=== PATIENT | male | born 1955 | race African-American/Black ===

== ENCOUNTER 2020-03-26 12:20 | Emergency (ER) | payer OTHER ==
[2020-03-26 12:35] VITALS: BMI 33.8
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
[2020-03-26] MEDS ORDERED: ACETAMINOPHEN 500 MG TABLET (FP) PO ONE (13:28)
[2020-03-26] MEDS ORDERED: ACETAMINOPHEN 325 MG TABLET (FP) ONE (13:39)
[2020-03-26] MEDS ORDERED: DIPHTH,PERTUSS(ACELL),TET 0.5 ML DISP.SYRIN IM ONE ×2 (13:51→14:00)
[2020-03-26 16:19] VITALS: BP 138/80; PULSE 72; TEMP 98.1
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
== END 2020-03-26 16:20 | disposition home or self-care (01) ==
LOC: JER 12:20
PROC: 0CQ03ZZ Repair Upper Lip, Percutaneous Approach (ICD-10-PCS; principal; 2020-03-26)
PROC: 3E0234Z Introduction of Serum, Toxoid and Vaccine into Muscle, Percutaneous Approach (ICD-10-PCS; 2020-03-26)
DX: S01.511A Laceration without foreign body of lip, initial encounter (principal)
CPT/HCPCS: 70450-TC; 72125-TC; 90715; 99285-25

== ENCOUNTER 2024-01-24 04:40 | Emergency (ER) | payer OTHER ==
[2024-01-24 04:50] VITALS: TEMP 97.7; BMI 35.5
[2024-01-24] MEDS ORDERED: ACETAMINOPHEN INJECTION 100 ML IVPB ONE (05:10)
[2024-01-24] MEDS ORDERED: ONDANSETRON 4 MG/2 ML VIAL ONE (05:10)
[2024-01-24] MEDS: ONDANSETRON 4 MG/2 ML VIAL IVPUSH ONE (05:29)
[2024-01-24] MEDS: ACETAMINOPHEN 1000 MG/100 ML BAG IVPB ONE (05:29)
[2024-01-24 05:56] LABS: BASO % 0.2 % (0-2.0); EOS % 0.3 % (0-4.5); HEMATOCRIT 42.9 % (35.4-49); MCH 27.7 pg (25.7-33.7); MCHC 32.7 g/dl (32.0-35.9); MEAN CELL VOLUME 84.6 fl (80-96); MEAN PLT VOLUME 9.4 fl (7.5-11.1); MONO % 4.9 % (3.8-10.2); NEUT % 70.6 % (42.8-82.8); PLATELET COUNT 216 10^3/uL (134-434); RBC 5.07 M/mm3 (4.00-5.60); RDW 14.8 % (11.9-15.9); WHITE BLOOD COUNT 5.6 K/mm3 (4.0-10.0)
[2024-01-24 06:12] LABS: VENOUS BASE EXCESS -2.5 mmol/L (-2-2); VENOUS O2 SATURATION 79.5 % (70-80); VENOUS PCO2 36.2 mmHg (38-52); VENOUS PH 7.395 (7.310-7.410)
[2024-01-24 06:15] LABS: INR 1.02 (0.83-1.09); PROTHROMBIN TIME (PATIENT) 11.7 SEC (9.7-13.0)
[2024-01-24 06:17] LABS: ACTIVATED PTT 30.8 SECONDS (25.2-36.5)
[2024-01-24 06:41] LABS: ALBUMIN 3.6 g/dl (3.4-5.0); CALCIUM 9.4 mg/dL (8.5-10.1)
[2024-01-24 06:42] LABS: MAGNESIUM 1.8 mg/dL (1.8-2.4)
[2024-01-24 06:44] LABS: CREATININE 1.2 mg/dL (0.55-1.3); PHOSPHOROUS 2.5 mg/dL (2.5-4.9)
[2024-01-24 06:46] LABS: BILIRUBIN,TOTAL 0.7 mg/dL (0.2-1); TOT PROT 7.3 g/dl (6.4-8.2)
[2024-01-24] MEDS: LACTATED RINGERS SOLUTION 1000 ML INFUS.BAG IV ONE (06:52)
[2024-01-24 10:26] VITALS: BP 171/78; PULSE 53; RESP 18
== END 2024-01-24 10:26 | disposition home or self-care (01) ==
LOC: JER 04:40
PROC: 3E033GC Introduction of Other Therapeutic Substance into Peripheral Vein, Percutaneous Approach (ICD-10-PCS; principal; 2024-01-24)
PROC: 3E033NZ Introduction of Analgesics, Hypnotics, Sedatives into Peripheral Vein, Percutaneous Approach (ICD-10-PCS; 2024-01-24)
DX: R10.32 Left lower quadrant pain (principal); R11.2 Nausea with vomiting, unspecified; R06.02 Shortness of breath; R07.2 Precordial pain; K57.32 Diverticulitis of large intestine without perforation or abscess without bleeding
CPT/HCPCS: 36415; 71045-TC-FY; 74177-TC; 80053; 82803; 83690; 83735; 84100; 84484; 85025; 85610; 85730; 93005; 93010; 99285-25; J0131

== ENCOUNTER 2024-01-25 18:10 | Inpatient (IN) | payer OTHER ==
[2024-01-25 19:43] LABS: BASO % 0.1 % (0-2.0); HEMATOCRIT 48.2 % (35.4-49); LYMPH % 12.2 % (8-40); MCHC 33.1 g/dl (32.0-35.9); MEAN CELL VOLUME 84.5 fl (80-96); MEAN PLT VOLUME 9.8 fl (7.5-11.1); MONO % 2.1 % (3.8-10.2); NEUT % 85.6 % (42.8-82.8); PLATELET COUNT 186 10^3/uL (134-434); RBC 5.71 M/mm3 (4.00-5.60); RDW 15.7 % (11.9-15.9); WHITE BLOOD COUNT 7.3 K/mm3 (4.0-10.0)
[2024-01-25] MEDS ORDERED: PIPERACILLIN/TAZOB 3.375 GM 3.375 GM/50 ML BAG IVPB ONE (19:46)
[2024-01-25 19:48] LABS: VENOUS BASE EXCESS -0.7 mmol/L (-2-2); VENOUS O2 SATURATION 80.1 % (70-80); VENOUS PCO2 35.9 mmHg (38-52); VENOUS PH 7.427 (7.310-7.410)
[2024-01-25] MEDS: ACETAMINOPHEN 1000 MG/100 ML BAG IVPB ONE (20:00)
[2024-01-25] MEDS: SODIUM CHLORIDE 1,000 ML IV STA (20:00)
[2024-01-25] MEDS: PIPERACILLIN/TAZOB 3.375 GM 3.375 GM in DEXTROSE 5%-WATER - 50 ML IVPB ONE (20:01)
[2024-01-25 20:08] LABS: POTASSIUM 4.7 mmol/L (3.5-5.1)
[2024-01-25 20:10] LABS: CALCIUM 9.5 mg/dL (8.5-10.1)
[2024-01-25 20:11] LABS: BLOOD UREA NITROGEN 12.6 mg/dL (7-18)
[2024-01-25 20:12] LABS: ALBUMIN 3.6 g/dl (3.4-5.0)
[2024-01-25 20:14] LABS: CREATININE 1.5 mg/dL (0.55-1.3)
[2024-01-25 20:16] LABS: BILIRUBIN,TOTAL 2.6 mg/dL (0.2-1); TOT PROT 8.3 g/dl (6.4-8.2)
[2024-01-25 20:25] LABS: LACTIC ACID 5.7 mmol/L (0.4-2.0)
[2024-01-25 21:13] LABS: INR 1.62 (0.83-1.09); PROTHROMBIN TIME (PATIENT) 18.1 SEC (9.7-13.0)
[2024-01-25] MEDS: VANCOMYCIN PREMIX 1.75 GM 1,750 MG/350 ML PIGGYBACK IVPB ONE (22:01)
[2024-01-26 00:52] LABS: EPI CELLS 5 /uL (0-25.1); HYALINE CASTS 0 /uL (0-3.1); URINE APPEARANCE CLEAR; URINE BACTERIA 9 /uL (0-1359); URINE BILIRUBIN NEGATIVE (NEGATIVE); URINE COLOR YELLOW; URINE GLUCOSE (UA) 1+ (NEGATIVE); URINE KETONE NEGATIVE (NEGATIVE); URINE LEUK ESTERASE 2+ (NEGATIVE); URINE NITRITE NEGATIVE (NEGATIVE); URINE PROTEIN TRACE (NEGATIVE); URINE RBC 9 /uL (0-23.9); URINE UROBILINOGEN 0.2 mg/dL (0.2-1.0); URINE WBC 72 /uL (0-25.8)
[2024-01-26] MEDS ORDERED: ACETAMINOPHEN 325 MG TABLET (FP) PO PRN (02:17)
[2024-01-26] MEDS ORDERED: PIPERACILLIN/TAZOB 2.25 GM 2.25 GM/50 ML BAG IVPB ONE ×3 (02:38→13:33)
[2024-01-26] MEDS ORDERED: PIPERACILLIN/TAZOB 2.25 GM 2.25 GM in DEXTROSE 5%-WATER - 50 ML IVPB SCH (03:00)
[2024-01-26] MEDS: PIPERACILLIN/TAZOB 2.25 GM 2.25 GM in DEXTROSE 5%-WATER - 50 ML IVPB SCH (03:27)
[2024-01-26] MEDS: ACETAMINOPHEN 325 MG TABLET (FP) PO PRN (03:28)
[2024-01-26 06:37] LABS: HEMATOCRIT 41.8 % (35.4-49); HEMOGLOBIN 13.5 GM/dL (11.7-16.9); MCH 27.3 pg (25.7-33.7); MCHC 32.3 g/dl (32.0-35.9); MEAN CELL VOLUME 84.5 fl (80-96); PLATELET COUNT 135 10^3/uL (134-434); RBC 4.95 M/mm3 (4.00-5.60); WHITE BLOOD COUNT 17.1 K/mm3 (4.0-10.0)
[2024-01-26 06:47] LABS: POTASSIUM 3.5 mmol/L (3.5-5.1)
[2024-01-26 06:50] LABS: BLOOD UREA NITROGEN 16.6 mg/dL (7-18); CALCIUM 8.4 mg/dL (8.5-10.1); MAGNESIUM 1.5 mg/dL (1.8-2.4)
[2024-01-26 06:53] LABS: CREATININE 1.3 mg/dL (0.55-1.3); PHOSPHOROUS 2.5 mg/dL (2.5-4.9)
[2024-01-26 06:55] LABS: BILIRUBIN,TOTAL 1.8 mg/dL (0.2-1); TOT PROT 6.4 g/dl (6.4-8.2)
[2024-01-26 06:58] LABS: N-TERMINAL BNP 2160.8 pg/ml (5-125)
[2024-01-26 07:17] LABS: ALBUMIN 2.8 g/dl (3.4-5.0)
[2024-01-26] MEDS ORDERED: MAGNESIUM SULFATE IN WATER 2 GM/50 ML IVPB IVPB ONE (08:04)
[2024-01-26] MEDS: MAGNESIUM SULF 50% (8.12 MEQ/2 ML-1 GM VIAL) IVPB ONE (08:14)
[2024-01-26 08:41] LABS: ANISOCYTOSIS 0; HELMET CELLS 0; HOWELL-JOLLY BODIES 0; MACROCYTOSIS 0; OVALOCYTE 0; ROULEAU 0; SICKELED CELLS 0; TARGET CELLS 0; TEAR DROP CELLS 0; TOXIC GRANULATION 0
[2024-01-26] MEDS ORDERED: metFORMIN HCL 500 MG TABLET (FP) ONE (09:26)
[2024-01-26] MEDS ORDERED: PANTOPRAZOLE SODIUM 40 MG VIAL ONE (09:27)
[2024-01-26] MEDS ORDERED: ENOXAPARIN NA (PORCINE) 40 MG/0.4 ML DISP.SYRIN SQ ONE (09:27)
[2024-01-26] MEDS: PANTOPRAZOLE SODIUM 40 MG VIAL IVPUSH SCH (09:46)
[2024-01-26] MEDS: ENOXAPARIN NA (PORCINE) 40 MG/0.4 ML DISP.SYRIN SQ SCH (09:46)
[2024-01-26] MEDS: metFORMIN HCL 500 MG TABLET (FP) PO SCH (09:46)
[2024-01-26] MEDS: FINASTERIDE 5 MG TABLET (FP) PO SCH (10:35)
[2024-01-26] MEDS ORDERED: MORPHINE SULFATE 2 MG/ML SYRINGE ONE (14:02)
[2024-01-26] MEDS: MORPHINE SULFATE 2 MG/ML SYRINGE IM PRN (14:08)
[2024-01-26] MEDS: SODIUM CHLORIDE 1,000 ML IV SCH (14:09)
[2024-01-26 17:51] VITALS: BMI 42.7
[2024-01-26] MEDS: INSULIN ASPART SLIDING SCALE (NOVOLOG) 1 VIAL SQ SCH (19:23)
[2024-01-26] MEDS: PIPERACILLIN/TAZOB 3.375 GM 3.375 GM in DEXTROSE 5%-WATER - 50 ML IVPB SCH (19:23)
[2024-01-26] MEDS: ACETAMINOPHEN 1000 MG/100 ML BAG IVPB PRN (20:20)
[2024-01-27 08:43] LABS: HEMATOCRIT 38.9 % (35.4-49); HEMOGLOBIN 12.7 GM/dL (11.7-16.9); MCH 27.3 pg (25.7-33.7); MCHC 32.5 g/dl (32.0-35.9); MEAN CELL VOLUME 83.9 fl (80-96); MEAN PLT VOLUME 9.8 fl (7.5-11.1); PLATELET COUNT 90 10^3/uL (134-434); RBC 4.64 M/mm3 (4.00-5.60); RDW 15.4 % (11.9-15.9); WHITE BLOOD COUNT 23.1 K/mm3 (4.0-10.0)
[2024-01-27 09:04] LABS: POTASSIUM 3.4 mmol/L (3.5-5.1)
[2024-01-27 09:06] LABS: ALBUMIN 2.3 g/dl (3.4-5.0); CALCIUM 8.1 mg/dL (8.5-10.1)
[2024-01-27 09:07] LABS: BLOOD UREA NITROGEN 22.2 mg/dL (7-18)
[2024-01-27 09:09] LABS: MAGNESIUM 2.3 mg/dL (1.8-2.4); PHOSPHOROUS 2.6 mg/dL (2.5-4.9)
[2024-01-27 09:10] LABS: CREATININE 1.2 mg/dL (0.55-1.3)
[2024-01-27 09:11] LABS: BILIRUBIN,TOTAL 1.4 mg/dL (0.2-1); TOT PROT 5.7 g/dl (6.4-8.2)
[2024-01-28] MEDS: ACETAMINOPHEN 325 MG TABLET (FP) PO PRN (10:05)
[2024-01-28 10:17] LABS: HEMATOCRIT 38.1 % (35.4-49); HEMOGLOBIN 12.5 GM/dL (11.7-16.9); MCH 27.4 pg (25.7-33.7); MCHC 32.9 g/dl (32.0-35.9); MEAN CELL VOLUME 83.3 fl (80-96); MEAN PLT VOLUME 10.6 fl (7.5-11.1); RBC 4.57 M/mm3 (4.00-5.60); RDW 15.3 % (11.9-15.9); WHITE BLOOD COUNT 14.3 K/mm3 (4.0-10.0)
[2024-01-28 10:19] LABS: CHLORIDE 107 mmol/L (98-107); SODIUM 139 mmol/L (136-145)
[2024-01-28 10:21] LABS: CALCIUM 7.7 mg/dL (8.5-10.1)
[2024-01-28 10:22] LABS: ALBUMIN 2.1 g/dl (3.4-5.0); BLOOD UREA NITROGEN 20.8 mg/dL (7-18); CO2 25 mmol/L (21-32); GLUCOSE,RANDOM 119 mg/dL (74-106); MAGNESIUM 2.4 mg/dL (1.8-2.4)
[2024-01-28 10:25] LABS: ANION GAP 7 mmol/L (4-13); CREATININE 0.9 mg/dL (0.55-1.3); POTASSIUM 2.9 mmol/L (3.5-5.1); SGOT/AST 28 U/L (15-37); SGPT/ALT 31 U/L (13-61)
[2024-01-28 10:26] LABS: BILIRUBIN,TOTAL 1.2 mg/dL (0.2-1)
[2024-01-28 10:27] LABS: TOT PROT 5.4 g/dl (6.4-8.2)
[2024-01-28 10:28] LABS: ALK PHOS 94 U/L (45-117)
[2024-01-28 10:29] LABS: PHOSPHOROUS 1.1 mg/dL (2.5-4.9)
[2024-01-28 11:34] LABS: PLATELET COUNT 58 10^3/uL (134-434)
[2024-01-28 12:03] LABS: BILIRUBIN,DIRECT 0.5 mg/dL (0.0-0.2)
[2024-01-28] MEDS: POTASSIUM CHLORIDE TABS 20 MEQ TABLET.ER (FP) PO ONE (12:26)
[2024-01-28] MEDS: NAPH,MB-DB/K PH,MBDB POWDER PACKET PO SCH (12:26)
[2024-01-29] MEDS ORDERED: ACETAMINOPHEN 1000 MG/100 ML BAG IVPB ONE ×2 (07:06→15:11)
[2024-01-29] MEDS: ACETAMINOPHEN 1000 MG/100 ML BAG IVPB ONE ×2 (07:08→18:20)
[2024-01-29] MEDS: SODIUM CHLORIDE 1,000 ML IV STA ×2 (07:39→09:40)
[2024-01-29] MEDS: KETOROLAC TROMETHAMINE 15 MG/ML VIAL IVPUSH ONE (07:54)
[2024-01-29 09:48] LABS: BASO % 0.2 % (0-2.0); HEMATOCRIT 40.1 % (35.4-49); LYMPH % 2.7 % (8-40); MCH 27.2 pg (25.7-33.7); MCHC 32.5 g/dl (32.0-35.9); MEAN CELL VOLUME 83.7 fl (80-96); MEAN PLT VOLUME 10.6 fl (7.5-11.1); MONO % 9.4 % (3.8-10.2); NEUT % 86.7 % (42.8-82.8); PLATELET COUNT 57 10^3/uL (134-434); RBC 4.79 M/mm3 (4.00-5.60)
[2024-01-29 09:52] LABS: INR 1.13 (0.83-1.09); PROTHROMBIN TIME (PATIENT) 12.7 SEC (9.7-13.0)
[2024-01-29 09:54] LABS: ACTIVATED PTT 29.7 SECONDS (25.2-36.5)
[2024-01-29 09:59] LABS: POTASSIUM 3.2 mmol/L (3.5-5.1)
[2024-01-29 10:04] LABS: ALBUMIN 2.2 g/dl (3.4-5.0); BLOOD UREA NITROGEN 20.1 mg/dL (7-18)
[2024-01-29 10:09] LABS: BILIRUBIN,TOTAL 1.5 mg/dL (0.2-1); TOT PROT 5.7 g/dl (6.4-8.2)
[2024-01-29 10:38] LABS: ALBUMIN 2.2 g/dl (3.4-5.0); BLOOD UREA NITROGEN 19.6 mg/dL (7-18); CALCIUM 7.9 mg/dL (8.5-10.1)
[2024-01-29 10:39] LABS: MAGNESIUM 2.3 mg/dL (1.8-2.4)
[2024-01-29 10:42] LABS: PHOSPHOROUS 1.4 mg/dL (2.5-4.9)
[2024-01-29 10:43] LABS: BILIRUBIN,TOTAL 1.5 mg/dL (0.2-1); TOT PROT 5.7 g/dl (6.4-8.2)
[2024-01-29] MEDS: KCL 10 MEQ IVPB 10 MEQ/100 ML INFUS.BAG IVPB SCH (11:35)
[2024-01-29] MEDS ORDERED: BUPIVACAINE HCL/PF 0.25% (2.5MG/ML) 10 ML VIAL ONE (13:29)
[2024-01-29] MEDS ORDERED: HEPARIN NA (PORCINE) 5,000 UNITS/ML 1ML VIAL ONE (13:51)
[2024-01-29] MEDS: POTASSIUM PHOSPHATE 15 MM in DEXTROSE 5%-WATER - 250 ML IVPB ONE (13:51)
[2024-01-29] MEDS ORDERED: LIDOCAINE HCL/PF 2% SDV 5ML VIAL ONE (13:57)
[2024-01-29] MEDS ORDERED: PROPOFOL 20 ML ONE (13:57)
[2024-01-29] MEDS ORDERED: MIDAZOLAM HCL 2 MG/2 ML SINGLE DOSE VIAL ONE (13:58)
[2024-01-29] MEDS ORDERED: SUCCINYLCHOLINE CHLORIDE 200 MG/10 ML SYRINGE ONE (13:58)
[2024-01-29] MEDS ORDERED: ROCURONIUM BROMIDE 50 MG/5 ML SYRINGE ONE ×2 (13:58→15:56)
[2024-01-29] MEDS ORDERED: DEXAMETHASONE SOD PHOSPHATE 4 MG/1 ML VIAL ONE (14:29)
[2024-01-29] MEDS: BUPIVACAINE HCL/PF 0.25% (2.5MG/ML) 10 ML VIAL IJ ONE (14:42)
[2024-01-29] MEDS: cefOXitin SODIUM 1 GM VIAL (RESTRICTED TO ID) IVPB ONE (14:55)
[2024-01-29] MEDS ORDERED: ONDANSETRON 4 MG/2 ML VIAL IVPUSH PRN ×2 (15:10→17:21)
[2024-01-29] MEDS ORDERED: PROMETHAZINE HCL 25 MG/1 ML VIAL IVPB PRN ×2 (15:10→17:21)
[2024-01-29] MEDS ORDERED: LACTATED RINGERS SOLUTION 1,000 ML IV SCH ×2 (15:15→17:21)
[2024-01-29] MEDS ORDERED: KETOROLAC TROMETHAMINE 30 MG/1 ML VIAL ONE (16:45)
[2024-01-29] MEDS ORDERED: ONDANSETRON 4 MG/2 ML VIAL ONE (16:45)
[2024-01-29] MEDS ORDERED: GLYCOPYRROLATE 0.2 MG/1 ML VIAL ONE (16:46)
[2024-01-29] MEDS ORDERED: NEOSTIGMINE METHYLSULFATE 0.5 MG/1 ML - 10 ML MDV ONE (16:46)
[2024-01-29] MEDS: PIPERACILLIN/TAZOB 3.375 GM 3.375 GM in DEXTROSE 5%-WATER - 50 ML IVPB SCH (18:14)
[2024-01-29] MEDS: ACETAMINOPHEN INJECTION 100 ML IVPB ONE (18:20)
[2024-01-29 18:40] LABS: CALCIUM 7.7 mg/dL (8.5-10.1)
[2024-01-29 18:41] LABS: BLOOD UREA NITROGEN 20.9 mg/dL (7-18)
[2024-01-29 18:44] LABS: CREATININE 1.1 mg/dL (0.55-1.3)
[2024-01-29 19:34] LABS: PHOSPHOROUS 4.3 mg/dL (2.5-4.9)
[2024-01-29] MEDS: SODIUM CHLORIDE 1,000 ML IV SCH (19:35)
[2024-01-29] MEDS: ACETAMINOPHEN 325 MG TABLET (FP) PO SCH (21:01)
[2024-01-30] MEDS: oxyCODONE HCL 5 MG TABLET PO PRN ×2 (01:37→09:47)
[2024-01-30] MEDS: INSULIN ASPART SLIDING SCALE (NOVOLOG) 1 VIAL SQ SCH (06:30)
[2024-01-30 09:22] LABS: BASO % 0.1 % (0-2.0); EOS % 0.1 % (0-4.5); HEMOGLOBIN 11.8 GM/dL (11.7-16.9); MCH 27.1 pg (25.7-33.7); MCHC 32.9 g/dl (32.0-35.9); MEAN CELL VOLUME 82.4 fl (80-96); MONO % 9.6 % (3.8-10.2); NEUT % 83.2 % (42.8-82.8); PLATELET COUNT 78 10^3/uL (134-434); RBC 4.37 M/mm3 (4.00-5.60); RDW 15.9 % (11.9-15.9); WHITE BLOOD COUNT 13.2 K/mm3 (4.0-10.0)
[2024-01-30 09:35] LABS: POTASSIUM 3.4 mmol/L (3.5-5.1)
[2024-01-30 09:47] LABS: BLOOD UREA NITROGEN 19.7 mg/dL (7-18); CALCIUM 7.5 mg/dL (8.5-10.1)
[2024-01-30] MEDS: FINASTERIDE 5 MG TABLET (FP) PO SCH (09:47)
[2024-01-30 09:50] LABS: MAGNESIUM 2.8 mg/dL (1.8-2.4); PHOSPHOROUS 1.8 mg/dL (2.5-4.9)
[2024-01-30 09:51] LABS: BILIRUBIN,TOTAL 0.8 mg/dL (0.2-1)
[2024-01-30 09:54] LABS: TOT PROT 5.5 g/dl (6.4-8.2)
[2024-01-30] MEDS: POTASSIUM CHLORIDE TABS 20 MEQ TABLET.ER (FP) PO ONE (15:09)
[2024-01-30] MEDS: SODIUM CHLORIDE 1,000 ML IV SCH (18:51)
[2024-01-30] MEDS: NAPH,MB-DB/K PH,MBDB POWDER PACKET PO SCH (21:47)
[2024-01-31 09:48] LABS: HEMATOCRIT 36.9 % (35.4-49); HEMOGLOBIN 11.9 GM/dL (11.7-16.9); MCH 27.4 pg (25.7-33.7); MCHC 32.4 g/dl (32.0-35.9); MEAN CELL VOLUME 84.6 fl (80-96); MEAN PLT VOLUME 10.5 fl (7.5-11.1); PLATELET COUNT 97 10^3/uL (134-434); RBC 4.35 M/mm3 (4.00-5.60); RDW 15.6 % (11.9-15.9)
[2024-01-31 10:42] LABS: POTASSIUM 4.2 mmol/L (3.5-5.1)
[2024-01-31 10:58] LABS: CALCIUM 7.5 mg/dL (8.5-10.1)
[2024-01-31 10:59] LABS: ALBUMIN 1.9 g/dl (3.4-5.0); BLOOD UREA NITROGEN 16.1 mg/dL (7-18); MAGNESIUM 2.4 mg/dL (1.8-2.4)
[2024-01-31 11:00] LABS: BILIRUBIN,TOTAL 0.9 mg/dL (0.2-1); TOT PROT 5.5 g/dl (6.4-8.2)
[2024-01-31 11:02] LABS: PHOSPHOROUS 1.5 mg/dL (2.5-4.9)
[2024-02-01 10:10] LABS: HEMATOCRIT 36.5 % (35.4-49); HEMOGLOBIN 11.9 GM/dL (11.7-16.9); MCH 27.3 pg (25.7-33.7); MCHC 32.6 g/dl (32.0-35.9); MEAN CELL VOLUME 83.6 fl (80-96); MEAN PLT VOLUME 10.4 fl (7.5-11.1); PLATELET COUNT 168 10^3/uL (134-434); RBC 4.36 M/mm3 (4.00-5.60); RDW 15.8 % (11.9-15.9); WHITE BLOOD COUNT 15.5 K/mm3 (4.0-10.0)
[2024-02-01 10:32] LABS: POTASSIUM 3.6 mmol/L (3.5-5.1)
[2024-02-01 10:34] LABS: BLOOD UREA NITROGEN 11.6 mg/dL (7-18); CALCIUM 7.9 mg/dL (8.5-10.1); MAGNESIUM 2.2 mg/dL (1.8-2.4)
[2024-02-01 10:36] LABS: CREATININE 0.8 mg/dL (0.55-1.3)
[2024-02-01 10:38] LABS: BILIRUBIN,TOTAL 1.1 mg/dL (0.2-1); PHOSPHOROUS 2.3 mg/dL (2.5-4.9); TOT PROT 5.6 g/dl (6.4-8.2)
[2024-02-01] MEDS: POLYETHYLENE GLYCOL (HEALTHYLAX) 3350 17 GM PACKET PO SCH (12:35)
[2024-02-01 16:01] LABS: BILIRUBIN,DIRECT 0.3 mg/dL (0.0-0.2)
[2024-02-01 16:03] LABS: BILIRUBIN,TOTAL 0.8 mg/dL (0.2-1)
[2024-02-01] MEDS ORDERED: POTASSIUM PHOSPHATE 15 MM in DEXTROSE 5%-WATER - 250 ML IVPB ONE (18:01)
[2024-02-01] MEDS: BISACODYL 10 MG SUPP.RECT PR ONE (18:31)
[2024-02-02] MEDS: NAPH,MB-DB/K PH,MBDB POWDER PACKET PO ONE (06:28)
[2024-02-02 08:50] LABS: HEMATOCRIT 37.8 % (35.4-49); HEMOGLOBIN 12.3 GM/dL (11.7-16.9); MCH 27.4 pg (25.7-33.7); MCHC 32.6 g/dl (32.0-35.9); MEAN CELL VOLUME 83.9 fl (80-96); MEAN PLT VOLUME 9.6 fl (7.5-11.1); PLATELET COUNT 229 10^3/uL (134-434); RBC 4.51 M/mm3 (4.00-5.60); RDW 15.3 % (11.9-15.9); WHITE BLOOD COUNT 15.1 K/mm3 (4.0-10.0)
[2024-02-02 09:15] LABS: POTASSIUM 3.5 mmol/L (3.5-5.1)
[2024-02-02 09:23] LABS: CALCIUM 8.4 mg/dL (8.5-10.1)
[2024-02-02 09:25] LABS: BLOOD UREA NITROGEN 10.8 mg/dL (7-18)
[2024-02-02 09:26] LABS: BILIRUBIN,TOTAL 1.2 mg/dL (0.2-1); TOT PROT 5.6 g/dl (6.4-8.2)
[2024-02-02 09:27] LABS: CREATININE 0.9 mg/dL (0.55-1.3); PHOSPHOROUS 3.3 mg/dL (2.5-4.9)
[2024-02-02] MEDS: ENOXAPARIN NA (PORCINE) 40 MG/0.4 ML DISP.SYRIN SQ SCH (12:50)
[2024-02-03 10:02] LABS: BASO % 0.3 % (0-2.0); EOS % 1.3 % (0-4.5); HEMATOCRIT 33.8 % (35.4-49); HEMOGLOBIN 11.2 GM/dL (11.7-16.9); LYMPH % 10.3 % (8-40); MCH 27.5 pg (25.7-33.7); MEAN CELL VOLUME 83.4 fl (80-96); MEAN PLT VOLUME 9.9 fl (7.5-11.1); MONO % 6.5 % (3.8-10.2); NEUT % 81.6 % (42.8-82.8); PLATELET COUNT 270 10^3/uL (134-434); RBC 4.05 M/mm3 (4.00-5.60); RDW 15.6 % (11.9-15.9); WHITE BLOOD COUNT 12.2 K/mm3 (4.0-10.0)
[2024-02-03 10:23] LABS: POTASSIUM 3.6 mmol/L (3.5-5.1)
[2024-02-03 10:30] LABS: CALCIUM 8.5 mg/dL (8.5-10.1)
[2024-02-03 10:32] LABS: BILIRUBIN,TOTAL 0.9 mg/dL (0.2-1); BLOOD UREA NITROGEN 10.8 mg/dL (7-18); TOT PROT 5.5 g/dl (6.4-8.2)
[2024-02-03 10:34] LABS: CREATININE 0.8 mg/dL (0.55-1.3)
[2024-02-03] MEDS: KETOROLAC TROMETHAMINE 15 MG/ML VIAL IVPUSH ONE (18:12)
[2024-02-04 09:54] LABS: BASO % 0.2 % (0-2.0); EOS % 1.4 % (0-4.5); HEMATOCRIT 33.8 % (35.4-49); HEMOGLOBIN 11.4 GM/dL (11.7-16.9); LYMPH % 14.7 % (8-40); MCH 27.9 pg (25.7-33.7); MCHC 33.7 g/dl (32.0-35.9); MEAN CELL VOLUME 82.7 fl (80-96); MEAN PLT VOLUME 9.7 fl (7.5-11.1); NEUT % 77.7 % (42.8-82.8); PLATELET COUNT 326 10^3/uL (134-434); RBC 4.09 M/mm3 (4.00-5.60); RDW 15.6 % (11.9-15.9); WHITE BLOOD COUNT 9.8 K/mm3 (4.0-10.0)
[2024-02-04 10:12] LABS: POTASSIUM 4.2 mmol/L (3.5-5.1)
[2024-02-04 10:16] LABS: BLOOD UREA NITROGEN 10.4 mg/dL (7-18)
[2024-02-04 10:17] LABS: CALCIUM 8.5 mg/dL (8.5-10.1)
[2024-02-04 10:19] LABS: CREATININE 0.9 mg/dL (0.55-1.3)
[2024-02-04 10:21] LABS: BILIRUBIN,TOTAL 0.9 mg/dL (0.2-1); TOT PROT 5.7 g/dl (6.4-8.2)
[2024-02-05] MEDS: traMADol HCL 50 MG TABLET PO PRN (09:11)
[2024-02-05 09:55] LABS: HEMATOCRIT 34.2 % (35.4-49); HEMOGLOBIN 11.6 GM/dL (11.7-16.9); MCH 27.8 pg (25.7-33.7); MEAN CELL VOLUME 81.8 fl (80-96); MEAN PLT VOLUME 9.8 fl (7.5-11.1); PLATELET COUNT 416 10^3/uL (134-434); RBC 4.18 M/mm3 (4.00-5.60); RDW 15.4 % (11.9-15.9); WHITE BLOOD COUNT 9.8 K/mm3 (4.0-10.0)
[2024-02-05 09:57] LABS: POTASSIUM 4.5 mmol/L (3.5-5.1)
[2024-02-05 10:00] LABS: CALCIUM 8.7 mg/dL (8.5-10.1)
[2024-02-05 10:01] LABS: ALBUMIN 2.3 g/dl (3.4-5.0)
[2024-02-05 10:05] LABS: TOT PROT 6.2 g/dl (6.4-8.2)
[2024-02-05 10:19] LABS: CREATININE 0.9 mg/dL (0.55-1.3)
[2024-02-06 10:23] LABS: HEMATOCRIT 34.8 % (35.4-49); HEMOGLOBIN 11.5 GM/dL (11.7-16.9); MCH 27.2 pg (25.7-33.7); MCHC 33.1 g/dl (32.0-35.9); MEAN CELL VOLUME 82.3 fl (80-96); MEAN PLT VOLUME 9.3 fl (7.5-11.1); PLATELET COUNT 453 10^3/uL (134-434); RBC 4.23 M/mm3 (4.00-5.60); RDW 15.5 % (11.9-15.9); WHITE BLOOD COUNT 8.9 K/mm3 (4.0-10.0)
[2024-02-06 10:43] LABS: POTASSIUM 4.6 mmol/L (3.5-5.1)
[2024-02-06 10:52] LABS: BLOOD UREA NITROGEN 11.8 mg/dL (7-18); CALCIUM 9.2 mg/dL (8.5-10.1)
[2024-02-06 10:53] LABS: ALBUMIN 2.3 g/dl (3.4-5.0); MAGNESIUM 2.1 mg/dL (1.8-2.4)
[2024-02-06 10:56] LABS: BILIRUBIN,TOTAL 0.7 mg/dL (0.2-1); CREATININE 0.7 mg/dL (0.55-1.3); PHOSPHOROUS 2.6 mg/dL (2.5-4.9); TOT PROT 6.5 g/dl (6.4-8.2)
[2024-02-06 12:30] VITALS: TEMP 98.6
[2024-02-06 14:56] VITALS: BP 147/79; PULSE 55; RESP 19
== END 2024-02-06 16:15 | disposition home or self-care (01) | DRG 853 ==
LOC: JER 18:10 → JERBED 22:24 → J6S 01-26 18:14
PROVIDERS: ADMIT Internal Medicine; ATTEND Internal Medicine
PROC: 30233R1 Transfusion of Nonautologous Platelets into Peripheral Vein, Percutaneous Approach (ICD-10-PCS; 2024-01-29)
PROC: 0FT44ZZ Resection of Gallbladder, Percutaneous Endoscopic Approach (ICD-10-PCS; principal; 2024-01-29 14:45)
DX: A41.59 Other Gram-negative sepsis (principal); G93.41 Metabolic encephalopathy; J96.01 Acute respiratory failure with hypoxia; E87.20 Acidosis, unspecified; J90 Pleural effusion, not elsewhere classified; K57.32 Diverticulitis of large intestine without perforation or abscess without bleeding; K81.0 Acute cholecystitis; Z68.41 Body mass index [BMI] 40.0-44.9, adult; R65.20 Severe sepsis without septic shock; E11.9 Type 2 diabetes mellitus without complications; I10 Essential (primary) hypertension; J45.909 Unspecified asthma, uncomplicated; D69.6 Thrombocytopenia, unspecified; N40.0 Benign prostatic hyperplasia without lower urinary tract symptoms; E11.65 Type 2 diabetes mellitus with hyperglycemia; E87.6 Hypokalemia; E83.39 Other disorders of phosphorus metabolism; K59.00 Constipation, unspecified; E80.6 Other disorders of bilirubin metabolism; D72.829 Elevated white blood cell count, unspecified; D64.9 Anemia, unspecified; E66.9 Obesity, unspecified
CPT/HCPCS: 0241U-QW; 36415; 36430; 71045-TC-FY; 71250-TC; 74160-TC; 76705-TC; 80048; 80053; 81003; 82247; 82248; 82803; 82962; 83036; 83605; 83735; 83880; 84100; 84484; 85025; 85027; 85610; 85730; 86140; 86850; 86900; 86901; 86922; 87040; 87086; 87186; 88304-TC; 93005; 93010; 93306-TC; 93970-TC; 94760; 97116-GP; 97162-GP; 99285-25; J0131; J1644; J3370; P9034; Q9967

== ENCOUNTER 2024-07-03 19:54 | Inpatient (IN) | payer OTHER ==
[2024-07-03] MEDS: ACETAMINOPHEN 1000 MG/100 ML BAG IVPB ONE (21:16)
[2024-07-03] MEDS: SODIUM CHLORIDE 0.9% 500 ML INFUS.BAG IV ONE (21:16)
[2024-07-03 21:43] LABS: HEMOGLOBIN 15.9 GM/dL (11.7-16.9); MCH 27.5 pg (25.7-33.7); MEAN CELL VOLUME 83.3 fl (80-96); MEAN PLT VOLUME 9.4 fl (7.5-11.1); PLATELET COUNT 143 10^3/uL (134-434); RBC 5.76 M/mm3 (4.00-5.60); RDW 15.7 % (11.9-15.9); WHITE BLOOD COUNT 8.7 K/mm3 (4.0-10.0)
[2024-07-03 22:02] LABS: CHLORIDE 99 mmol/L (98-107); SODIUM 134 mmol/L (136-145)
[2024-07-03 22:04] LABS: ALBUMIN 3.6 g/dl (3.4-5.0); ANION GAP 5 mmol/L (4-13); CALCIUM 9.2 mg/dL (8.5-10.1); CO2 30 mmol/L (21-32)
[2024-07-03 22:05] LABS: BLOOD UREA NITROGEN 20.5 mg/dL (7-18); GLUCOSE,RANDOM 166 mg/dL (74-106)
[2024-07-03 22:08] LABS: CREATININE 1.3 mg/dL (0.55-1.3); SGOT/AST 45 U/L (15-37); SGPT/ALT 37 U/L (13-61)
[2024-07-03 22:09] LABS: BILIRUBIN,TOTAL 1.1 mg/dL (0.2-1); TOT PROT 7.8 g/dl (6.4-8.2)
[2024-07-03 22:10] LABS: ALK PHOS 48 U/L (45-117)
[2024-07-03 23:01] LABS: HIV INTERPRETATION NEGATIVE (NEGATIVE)
[2024-07-03 23:03] LABS: INR 1.4 (0.83-1.09); PROTHROMBIN TIME (PATIENT) 15.9 SEC (9.7-13.0)
[2024-07-03 23:05] LABS: ACTIVATED PTT 27.7 SECONDS (25.2-36.5)
[2024-07-03 23:07] LABS: ANISOCYTOSIS 0; MACROCYTOSIS 0
[2024-07-03 23:16] LABS: POTASSIUM 3.8 mmol/L (3.5-5.1)
[2024-07-03 23:18] LABS: CALCIUM 8.5 mg/dL (8.5-10.1)
[2024-07-03 23:19] LABS: ALBUMIN 3.1 g/dl (3.4-5.0); BLOOD UREA NITROGEN 19.6 mg/dL (7-18)
[2024-07-03 23:20] LABS: EPI CELLS 24 /uL (0-25.1); HYALINE CASTS 1 /uL (0-3.1); PH,URINE 5.5 (5.0-8.0); URINE APPEARANCE CLEAR; URINE BACTERIA 25 /uL (0-1359); URINE BILIRUBIN NEGATIVE (NEGATIVE); URINE COLOR YELLOW; URINE GLUCOSE (UA) NEGATIVE (NEGATIVE); URINE KETONE 1+ (NEGATIVE); URINE LEUK ESTERASE NEGATIVE (NEGATIVE); URINE NITRITE NEGATIVE (NEGATIVE); URINE PROTEIN 1+ (NEGATIVE); URINE RBC 42 /uL (0-23.9); URINE WBC 21 /uL (0-25.8)
[2024-07-03 23:24] LABS: TOT PROT 6.6 g/dl (6.4-8.2)
[2024-07-04] MEDS ORDERED: CEFTRIAXONE 1 G/50 ML PREMIX 50 ML IVPB ONE (01:49)
[2024-07-04] MEDS: CEFTRIAXONE 1,000 MG in DEXTROSE 5%-WATER - 50 ML IVPB ONE (02:48)
[2024-07-04 03:43] VITALS: BMI 34.4
[2024-07-04 07:00] LABS: BASO % 0.5 % (0-2.0); EOS % 0.1 % (0-4.5); HEMATOCRIT 45.3 % (35.4-49); HEMOGLOBIN 14.4 GM/dL (11.7-16.9); LYMPH % 22.3 % (8-40); MCH 26.9 pg (25.7-33.7); MCHC 31.9 g/dl (32.0-35.9); MEAN CELL VOLUME 84.4 fl (80-96); MEAN PLT VOLUME 9.1 fl (7.5-11.1); MONO % 12.6 % (3.8-10.2); NEUT % 64.5 % (42.8-82.8); PLATELET COUNT 162 10^3/uL (134-434); RBC 5.36 M/mm3 (4.00-5.60); RDW 15.9 % (11.9-15.9); WHITE BLOOD COUNT 6.2 K/mm3 (4.0-10.0)
[2024-07-04 07:13] LABS: POTASSIUM 4.1 mmol/L (3.5-5.1)
[2024-07-04 07:14] LABS: CALCIUM 8.6 mg/dL (8.5-10.1)
[2024-07-04 07:15] LABS: BLOOD UREA NITROGEN 17.4 mg/dL (7-18)
[2024-07-04 07:18] LABS: PHOSPHOROUS 2.3 mg/dL (2.5-4.9)
[2024-07-04] MEDS: MUPIROCIN 2% TOPICAL OINTMENT FOR DECOLONIZATION NS SCH (10:39)
[2024-07-04] MEDS: CEFTRIAXONE 1 G/50 ML PREMIX 50 ML IVPB SCH (10:39)
[2024-07-04] MEDS: FINASTERIDE 5 MG TABLET (FP) PO SCH (10:40)
[2024-07-04] MEDS: POTASSIUM PHOSPHATE 15 MM in SODIUM CHLORIDE 250 ML IVPB ONE (10:45)
[2024-07-04] MEDS: PNEUMOC 20-VAL CONJ-DIP CRM/PF 0.5 ML SYRINGE IM ONE (10:46)
[2024-07-04] MEDS: ACETAMINOPHEN 1000 MG/100 ML BAG IVPB ONE (11:45)
[2024-07-04] MEDS ORDERED: MUPIROCIN 2% TOPICAL OINTMENT FOR DECOLONIZATION NS SCH (22:00)
[2024-07-04] MEDS ORDERED: CHLORHEXIDINE GLUCONATE 4% CLEANSER FOR DECOLONIZATION TP SCH ×2 (22:00)
[2024-07-05] MEDS: ACETAMINOPHEN 325 MG TABLET (FP) PO ONE (06:58)
[2024-07-05] MEDS: FINASTERIDE 5 MG TABLET (FP) PO SCH (09:15)
[2024-07-05] MEDS: CEFTRIAXONE 1 G/50 ML PREMIX 50 ML IVPB SCH (09:15)
[2024-07-05 09:50] LABS: BASO % 0.3 % (0-2.0); EOS % 0.3 % (0-4.5); HEMATOCRIT 42.2 % (35.4-49); HEMOGLOBIN 13.9 GM/dL (11.7-16.9); LYMPH % 30.4 % (8-40); MCH 27.3 pg (25.7-33.7); MCHC 32.8 g/dl (32.0-35.9); MEAN CELL VOLUME 83.3 fl (80-96); MEAN PLT VOLUME 9.4 fl (7.5-11.1); MONO % 18.5 % (3.8-10.2); NEUT % 50.5 % (42.8-82.8); PLATELET COUNT 168 10^3/uL (134-434); RBC 5.07 M/mm3 (4.00-5.60); RDW 15.7 % (11.9-15.9)
[2024-07-05 10:38] LABS: POTASSIUM 3.7 mmol/L (3.5-5.1)
[2024-07-05 11:05] LABS: CALCIUM 8.7 mg/dL (8.5-10.1)
[2024-07-05 11:06] LABS: BLOOD UREA NITROGEN 16.8 mg/dL (7-18)
[2024-07-05 11:07] LABS: PHOSPHOROUS 1.9 mg/dL (2.5-4.9)
[2024-07-05 11:08] LABS: CREATININE 0.9 mg/dL (0.55-1.3)
[2024-07-05 11:09] LABS: BILIRUBIN,TOTAL 0.6 mg/dL (0.2-1); TOT PROT 6.6 g/dl (6.4-8.2)
[2024-07-05] MEDS: NAPH,MB-DB/K PH,MBDB POWDER PACKET PO SCH (21:21)
[2024-07-07 12:01] VITALS: BP 140/72; PULSE 55; RESP 18; TEMP 98.2
== END 2024-07-07 14:57 | disposition home or self-care (01) | DRG 64 ==
LOC: JER 19:54 → JERBED 07-04 01:23 → JICU 07-04 02:32 → J8W 07-04 20:45
PROVIDERS: ADMIT Internal Medicine Pulmonary Disease
DX: I62.00 Nontraumatic subdural hemorrhage, unspecified (principal); G93.41 Metabolic encephalopathy; K57.92 Diverticulitis of intestine, part unspecified, without perforation or abscess without bleeding; N39.0 Urinary tract infection, site not specified; E11.9 Type 2 diabetes mellitus without complications; I10 Essential (primary) hypertension; K57.90 Diverticulosis of intestine, part unspecified, without perforation or abscess without bleeding; E83.39 Other disorders of phosphorus metabolism
CPT/HCPCS: 0241U-QW; 36415; 70450-TC; 71045-TC-FY; 74176-TC; 80048; 80053; 80307; 81003; 82962; 83605; 83735; 84100; 84484; 85025; 85610; 85730; 86803; 86850; 86900; 86901; 87040; 87086; 87389; 87481; 90677; 93005; 93010; 99291; G0009; J0131

== ENCOUNTER 2024-10-26 00:28 | Emergency (ER) | payer OTHER ==
[2024-10-26 00:47] VITALS: TEMP 98.5; BMI 34.8
[2024-10-26] MEDS ORDERED: FAMOTIDINE 20 MG TABLET ONE (00:59)
[2024-10-26] MEDS: FAMOTIDINE 20 MG TABLET PO ONE (01:02)
[2024-10-26 02:37] LABS: ABSOLUTE IMMATURE GRANULOCYTES 0.02 x10^3/uL (0.0-0.031); BASOPHILS # 0.03 x10^3/uL (0.01-0.08); EOSINOPHILS # 0.11 x10^3/uL (0.04-0.54); HEMATOCRIT 41.8 % (40.1-51.0); HEMOGLOBIN 13.3 g/dL (13.7-17.5); MCHC 31.8 g/dl (32.3-36.5); MEAN CELL VOLUME 85.7 fl (79.0-92.2); MEAN PLT VOLUME 11.4 fl (9.4-12.4); MONOCYTE # 0.59 x10^3/uL (0.30-0.82); MONOCYTE % 10.6 % (5.3-12.2); PLATELET COUNT 201 x10^3/uL (163-337); RDW 15.2 % (12.2-16.6)
[2024-10-26 03:05] LABS: POTASSIUM 3.8 mmol/L (3.5-5.1)
[2024-10-26 03:07] LABS: ALBUMIN 3.3 g/dl (3.4-5.0); BLOOD UREA NITROGEN 18.1 mg/dL (7-18)
[2024-10-26 03:12] LABS: BILIRUBIN,TOTAL 0.5 mg/dL (0.2-1); TOT PROT 6.6 g/dl (6.4-8.2)
[2024-10-26 03:30] VITALS: BP 119/56; PULSE 57; RESP 16
[2024-10-26 03:55] LABS: HCV DIAGNOSTIC IN-HOUSE W/RFLX NON-REACTIVE (NONREACTIVE)
[2024-10-26 03:56] LABS: HIV INTERPRETATION NEGATIVE (NEGATIVE)
== END 2024-10-26 04:26 | disposition home or self-care (01) ==
LOC: JER 00:28
DX: R06.02 Shortness of breath (principal); T59.891A Toxic effect of other specified gases, fumes and vapors, accidental (unintentional), initial encounter; J68.8 Other respiratory conditions due to chemicals, gases, fumes and vapors; R12 Heartburn
CPT/HCPCS: 36415; 71045-TC-FY; 80053; 84484; 85025; 86803; 87389; 93005; 93010; 99285-25